=== PATIENT | female | born 1935 | race Two or more races ===

== ENCOUNTER 2020-04-27 19:04 | Inpatient (IN) | payer OTHER ==
[~2020-04-27] VITALS: Ht 160 cm; Wt 113.0 kg
--- NOTE | 2020-04-27 19:20 | NUR ---
PT BIBRA C/O SOB SINCE NOON TODAY. PT SATTING 89% ON RA. PT PLACED ON 7 L O2 SATTING 96%. PT DENIES ANY CHEST PAIN, FEVER, COUGH. PT AAOX4, CONNECTED TO THE PINNER PRINTED CIRCUIT BOARDS AND CONTINOUS POX.
--- NOTE | 2020-04-27 19:20 | NUR ---
DR NICKERSON AT BEDSIDE
[2020-04-27 19:27] LABS: BASOPHILS % (AUTO) 0.3 % (0.0-2.0); EOSINOPHILS % (AUTO) 0.2 % (0.0-6.0); HEMATOCRIT 45 % (33-45); HEMOGLOBIN 14.2 g/dL (11.5-14.8); LYMPHOCYTES # (AUTO) 0.9 /CMM (0.8-4.8); LYMPHOCYTES % (AUTO) 11.4 % (20.0-44.0); MEAN CORPUSCULAR HGB CONC 32 g/dl (31.0-36.0); MEAN CORPUSCULAR VOLUME 93 fL (82-100); MONOCYTES # (AUTO) 0.5 /CMM (0.1-1.30); MONOCYTES % (AUTO) 5.6 % (2.0-12.0); NEUTROPHILS # (AUTO) 6.9 /CMM (1.8-8.9); NEUTROPHILS % (AUTO) 82.5 % (43.0-81.0); PLATELET COUNT (AUTO) 182 /CMM (150-450); RED BLOOD CELL COUNT(AUTO) 4.85 MIL/uL (4.0-5.2); WHITE BLOOD COUNT (AUTO) 8.3 K/uL (4.3-11.0)
--- NOTE | 2020-04-27 19:27 | NUR ---
BLOOD COLLECTED AND SENT TO LAB
--- NOTE | 2020-04-27 19:31 | NUR ---
XRAY AR BEDSIDE
--- NOTE | 2020-04-27 19:32 | NUR ---
RT AT BEDSIDE
[2020-04-27 19:37] LABS: CALCIUM, SERUM 8.6 mg/dL (8.5-10.1); CARBON DIOXIDE 35 mmol/L (21-32); CHLORIDE 100 mmol/L (98-107); CREATININE 1.5 mg/dL (0.6-1.3); GLUCOSE 130 mg/dL (74-106); POTASSIUM 5.6 mmol/L (3.5-5.1); SODIUM SERUM 135 mmol/L (136-145); UREA NITROGEN, BLOOD 36 mg/dL (7-18)
[2020-04-27 19:40] LABS: ABG OXYGEN SATURATION 95.5 % (92.0-98.5); ABG PCO2 88.1 mmHg (35.0-45.0); ABG PH 7.182 (7.350-7.450); ABG PO2 97.9 mmHg (75.0-100.0); COHb 1.4 % (0.5-1.5); MetHb 0.4 % (0.0-1.5); O2Hb 93.8 % (94.0-97.0); SITE, ABG Right Radial; VENT MODE, BG RA
[2020-04-27 19:50] LABS: ALANINE AMINOTRANSFERASE 28 U/L (12-78); ALKALINE PHOSPHATASE 85 U/L (46-116); ASPARTATE AMINOTRANSFERASE 17 U/L (15-37); B-TYPE NATRIURETIC PEPTIDE 10179 PG/ML (0-125); BILIRUBIN,TOTAL 0.5 mg/dL (0.2-1.0); TOTAL PROTEIN, SERUM 7.1 g/dL (6.4-8.2)
[2020-04-27] MEDS ORDERED: PANT40TA4 PO (19:58)
[2020-04-27] MEDS ORDERED: LISI1TAB28 PO (19:58)
[2020-04-27] MEDS ORDERED: GABA-532 PO (19:58)
[2020-04-27] MEDS ORDERED: ATEN100T PO (19:58)
[2020-04-27] MEDS ORDERED: TERA2CAP4 PO (19:58)
[2020-04-27] MEDS ORDERED: DOCU100C36 PO (19:58)
[2020-04-27] MEDS ORDERED: AMLO5TAB9 PO (19:58)
[2020-04-27] MEDS ORDERED: ASPI-1169 PO (19:58)
[2020-04-27 20:01] LABS: D-DIMER 1.54 mg/L(FEU (0.17-0.50)
--- NOTE | 2020-04-27 20:08 | NUR ---
URINE COLLECTED AND SENT TO LAB
--- NOTE | 2020-04-27 20:11 | NUR ---
COVID AND RAPID INFLUENZA SWAB SENT TO LAB
[2020-04-27] MEDS ORDERED: FUROSEMIDE 40 MG/4 ML VIAL ONE (20:17)
[2020-04-27 20:24] LABS: APPEARANCE,URINE Slightly Cloudy (CLEAR); BILIRUBIN,URINE MODERATE (NEGATIVE); BLOOD, URINE Negative Ery/uL (NEGATIVE); COLOR,URINE Orange (YELLOW); KETONES,URINE Trace (NEGATIVE); LEUKOCYTE ESTERASE ,URINE Trace (NEGATIVE); NITRITE, URINE Negative (NEGATIVE); PROTEIN,URINE 100 mg/dl (NEGATIVE); UGLUCOSE Negative (NEGATIVE)
[2020-04-27] MEDS ORDERED: FUROSEMIDE 40 MG/4 ML VIAL IV ONE (20:30)
[2020-04-27 20:44] LABS: CREATINE KINASE, TOTAL 72 U/L (26-192); FERRITIN 14 ng/mL (8-388)
[2020-04-27 20:47] LABS: C-REACTIVE PROTEIN 1.4 mg/dL (0.0-0.9)
[2020-04-27] MEDS ORDERED: ENOXAPARIN SODIUM 120 MG/0.8 ML DISP.SYRIN SQ ONE (21:00)
[2020-04-27 21:01] LABS: RBC,URINE 0-2 /HPF (0-2)
[2020-04-27 21:02] LABS: BACTERIA,URINE Few /HPF (None Seen); MUCUS,URINE Few /LPF (None Seen); SQUAMOUS EPITHELIAL CELL,UR Moderate /HPF (None Seen); URINE AMORPHOUS URATE Many /HPF (None Seen)
[2020-04-27] MEDS ORDERED: ALBUTEROL FS 2.5 MG/0.5 ML VIAL.NEB NEB PRN (21:30)
[2020-04-27] MEDS ORDERED: ENOXAPARIN SODIUM 30 MG/0.3 ML DISP.SYRIN SQ SCH (21:30)
[2020-04-27] MEDS ORDERED: FUROSEMIDE 40 MG/4 ML VIAL IV SCH (21:30)
[2020-04-27] MEDS ORDERED: ACETAMINOPHEN 650 MG/SUPP.RECT RC PRN (21:30)
[2020-04-27] MEDS ORDERED: ONDANSETRON HCL/PF 4 MG/2 ML VIAL IVP PRN (21:30)
[2020-04-27] MEDS ORDERED: IPRATROPIUM NEB FS 0.5 MG/2.5 ML AMPUL.NEB NEB PRN (21:30)
--- NOTE | 2020-04-27 21:42 | NUR ---
RT AT BEDSIDE
[2020-04-27 21:50] LABS: ABG BASE EXCESS 2.6 mmol/L; ABG OXYGEN SATURATION 92.4 % (92.0-98.5); ABG PCO2 88.6 mmHg (35.0-45.0); ABG PH 7.199 (7.350-7.450); ABG PO2 77.5 mmHg (75.0-100.0); AaDO2 252.8 mmHg; COHb 1.5 % (0.5-1.5); MetHb 0.4 % (0.0-1.5); O2Hb 90.6 % (94.0-97.0); SITE, ABG Right Radial
--- NOTE | 2020-04-27 22:14 | NUR ---
REPORT GIVEN TO ELSI ORTEGA FOR HU
--- NOTE | 2020-04-27 22:15 | NUR ---
BIPAP SETTINGS: IPAP:18 EPAP: 8 RATE: 26 O2: 60%
[2020-04-27] MEDS ORDERED: LEVOFLOXACIN 500 MG /D5W 100ML 500 MG in PREMIX 1 EA IV ONE (22:45)
[2020-04-27] MEDS ORDERED: LEVOFLOXACIN 500 MG /D5W 100ML 100 ML IV ONE (22:55)
--- NOTE | 2020-04-27 23:15 | NUR ---
SEA KAYAKING GUIDE ADMISSION NOTES RECEIVED PT FROM ER VIA [facility] ON BIPAP SETTING ORDERED WITH SPO2 90% SAFELY TRANSFER PATIENT FROM [place] TO BED, BIPAP PLUGGED TO RED OUTLET, VITAL SIGNS CHECKED AND RECORDED HOOK TO BEDSIDE MONITOR WITH READING OF SINUS PEDRO ON 40'S-50'S, HEAD TO TOE ASSESSMENT DONE, CLEANING THE PT DONE, INVENTORY OF BELONGINGS DONE, PT HAVE LAC#20 AND RAC #20 PATENT AND FLUSHED, WITH ELLISON CATHETER WITH YELLOW URINE FLOWING VIA GRAVITY, PLACE ON DROPLET ISOLATION PRECAUTION R/O COVID, SAFETY MEASURE INITIATED BED ON LOWEST POSITION AND LOCKED SIDE RAILS UP X2 CALL LIGHT WITHIN REACH WILL CONT TO MONITOR THE PATIENT
--- NOTE | 2020-04-27 23:24 | NUR ---
PT TRANSFERRED TO ICU VIA ACLS PROTOCOL
[2020-04-27 23:30] VITALS: BP 160/77
[2020-04-27] MEDS: methylPREDNISolone SOD SUCC 125 MG/2ML VIAL IV SCH (23:50)
[2020-04-28] VITALS (31 sets, daily range): BP systolic 65–185; BP diastolic 33–110
[2020-04-28] MEDS ORDERED: IV NS 0.9% 250 ML IV PRN
--- NOTE | 2020-04-28 00:25 | NUR ---
INDUSTRIAL MAINTENANCE REPAIRER HELPER NOTES CALLED THE PHARMACY AND ASK BOUT THE NEW ORDER FOR THE HEPARIN DRIP OF THE PT JUST TO CLARIFY THE DOSES, TALK TO MISS GUTIERREZ AND SHE SAYS THAT NO BOLUS IS REQUIRED BECAUSE THE PT ALREADY RECEIVED LOVENOX AT THE ER THIS EVENING AND SHE SAYS THAT THE MAXIMUM DOSE CAN BE GIVEN IS 1200 UNIT/HR AND IT SHOULD BE STARTED 12 HOURS AFTER THE LOVENOX ADMINISTRATION NOTED AND WILL INFORM DOCTOR ABOUT THAT
--- NOTE | 2020-04-28 00:35 | NUR ---
DEPUTY FELONY CLERK NOTES INFORM DR. ABRAHAM NAVA ABOUT THE WORDS FROM THE PHARMACY ABOUT THE HEPARIN DRIP THAT WE WE CAN START IT AFTER 12 HOURS OF LOVENOX ADMINISTRATION AND HE AGREED TO IT NOTED AND CARRIED OUT
[2020-04-28 00:58] LABS: ABG BASE EXCESS 5.3 mmol/L; ABG OXYGEN SATURATION 95.1 % (92.0-98.5); ABG PCO2 69.3 mmHg (35.0-45.0); ABG PH 7.309 (7.350-7.450); ABG PO2 82.2 mmHg (75.0-100.0); AaDO2 269.4 mmHg; COHb 1.6 % (0.5-1.5); MetHb 0.1 % (0.0-1.5); O2Hb 93.5 % (94.0-97.0); SITE, ABG Right Radial
[2020-04-28 05:58] LABS: BASOPHILS % (AUTO) 0.2 % (0.0-2.0); EOSINOPHILS % (AUTO) 0.2 % (0.0-6.0); HEMATOCRIT 46 % (33-45); HEMOGLOBIN 14.5 g/dL (11.5-14.8); LYMPHOCYTES # (AUTO) 0.8 /CMM (0.8-4.8); LYMPHOCYTES % (AUTO) 10.8 % (20.0-44.0); MEAN CORPUSCULAR HGB CONC 32 g/dl (31.0-36.0); MEAN CORPUSCULAR VOLUME 92 fL (82-100); MONOCYTES # (AUTO) 0.3 /CMM (0.1-1.30); MONOCYTES % (AUTO) 3.8 % (2.0-12.0); NEUTROPHILS # (AUTO) 6.6 /CMM (1.8-8.9); PLATELET COUNT (AUTO) 167 /CMM (150-450); RED BLOOD CELL COUNT(AUTO) 5.02 MIL/uL (4.0-5.2); WHITE BLOOD COUNT (AUTO) 7.7 K/uL (4.3-11.0)
[2020-04-28 06:58] LABS: CALCIUM, SERUM 8.6 mg/dL (8.5-10.1); CARBON DIOXIDE 38 mmol/L (21-32); CHLORIDE 97 mmol/L (98-107); CREATININE 1.6 mg/dL (0.6-1.3); GLUCOSE 114 mg/dL (74-106); POTASSIUM 5.6 mmol/L (3.5-5.1); SODIUM SERUM 133 mmol/L (136-145); UREA NITROGEN, BLOOD 37 mg/dL (7-18)
[2020-04-28 06:59] LABS: B-TYPE NATRIURETIC PEPTIDE 9233 PG/ML (0-125); CREATINE KINASE, TOTAL 86 U/L (26-192); FERRITIN 13 ng/mL (8-388); MAGNESIUM 2.3 mg/dL (1.8-2.4); PHOSPHORUS 5.5 mg/dL (2.5-4.9); TRIGLYCERIDES 72 mg/dL (30-150)
[2020-04-28 07:00] LABS: CHOLESTEROL 135 mg/dL (<200); HDL CHOLESTEROL 40 mg/dL (40-60); LDL 88 mg/dL (0-99); THYROID STIMULATING HORMONE 1.427 uIU/mL (0.358-3.74)
--- NOTE | 2020-04-28 07:30 | NUR ---
RN OPENING NOTES RECEIVED PATIENT FROM PM NURSE, RESTING IN BED. PATIENT RECEIVED ON BIPAP WITH SETTINGS ORDERED. TOLERATING WELL, O2 SATURATION AT 93%. PATIENT IS ON ISOLATION FOR RULE OUT OF COVID. PATIENT IS AWAKE AT THE MOMENT, A/O X4. ON TELE MONITOR WITH SB NOTED. MD IS AWARE. TROPONIN LEVEL OF 4.[address] RIOS, NO NEW ORDERS. PATIENT HAS A ELLISON IN PLACE, INTACT, PATENT, AND DRAINING TREVER URINE. PATIENT IS NPO AT THE MOMENT DUE TO CONDITION. OK TO GIVE MEDS PER DR SHARPE IF PATIENT IS AWAKE AND ALERT AND IS ABLE TO SWALLOW. LAC#20 AND RAC#20 INTACT, PATENT, AND FLUSHED WELL. SAFETY MAINTAINED, CALL LIGHT WITHIN REACH, WILL CONTINUE TO MONITOR CLOSELY.
[2020-04-28 07:46] LABS: D-DIMER 1.61 mg/L(FEU (0.17-0.50)
--- NOTE | 2020-04-28 08:11 | NUR ---
pt. is awake and follow commands placed into venti mask @ 28% fio2. bipap on stand by @ bedside. Addendum: 04/28/20 at 12 by HARINDER FORBES RT Amended: Links added.
[2020-04-28] MEDS: ASPIRIN 81 MG TAB.CHEW PO SCH (08:39)
[2020-04-28] MEDS: GABAPENTIN 100 MG CAPSULE PO SCH ×3 (08:40→20:15)
[2020-04-28] MEDS ORDERED: PANTOPRAZOLE 40 MG VIAL IV SCH (09:00)
--- NOTE | 2020-04-28 09:15 | NUR ---
RN NOTE CT OF THE CHEST IS ON HOLD FOR NOW PER DR SCOTT ORDER. WAITING ON ABG RESULTS PRIOR TO CT SCAN.
--- NOTE | 2020-04-28 09:42 | NUR ---
PATIENT SUPPOSED TO COME DOWN TO CT ROOM FOR CT CHEST W/O CONTRAST BUT WAS ON TILL FURTHER NOTICE PER DR. SCOTT.
--- NOTE | 2020-04-28 09:44 | NUR ---
PATIENT IS ON HOLD FOR THE CT SCAN UNTIL FURTHER NOTICE PER DR. SCOTT.
--- NOTE | 2020-04-28 09:47 | NUR ---
RN NOTE SPOKE TO PHARMACY. WAITING ON STARTING HEPARIN DRIP DUE TO NO PTT FROM THE AM. ASKED LAB TO ADD PTT TO MORNING BLOOD DRAW, WILL CALL ME BACK TO LET ME KNOW IF IT IS POSSIBLE. SAFETY MAINTAINED, CALL LIGHT WITHIN REACH, WILL CONTINUE TO MONITOR CLOSELY.
--- NOTE | 2020-04-28 09:57 | NUR ---
RN NOTE SPOKE TO FRANCHESKA IN PHARMACY, INFORMED HER THAT LAB IS UNABLE TO ADD PTT TO MORNING DRAW. PER PHARMACY, STAT APTT AND START HEPARIN DRIP SOON THEY DRAW THE BLOOD. NO NEED TO WAIT FOR RESULTS TO START THE DRIP, OK TO START RIGHT AFTER BLOOD DRAW. SAFETY MAINTAINED, CALL LIGHT WITHIN REACH, WILL CONTINUE TO MONITOR CLOSELY.
[2020-04-28] MEDS: HEPARIN INFUSION/D5W 500 ML IV PRN (10:33)
[2020-04-28] MEDS: IPRATROPIUM/ALBUTEROL INHALER IH SCH ×3 (12:57→23:31)
[2020-04-28] MEDS: methylPREDNISolone SOD SUCC 125 MG/2ML VIAL IV SCH ×3 (12:58→23:04)
--- NOTE | 2020-04-28 13:30 | NUR ---
RN NOTE URINE SAMPLE COLLECTED AND SENT TO LAB
[2020-04-28 13:58] LABS: CALCIUM, SERUM 8.6 mg/dL (8.5-10.1); CREATININE 1.3 mg/dL (0.6-1.3); POTASSIUM 4.4 mmol/L (3.5-5.1)
--- NOTE | 2020-04-28 18:47 | NUR ---
RN NOTE APTT RESULT CAME BACK AT 61.1, NO CHANGES TO DRIP RATE PER ORDERED PROTOCOL. PATIENT TOLERATING WELL, NO SIGNS AND SYMPTOMS OF BLEEDING NOTED. SAFETY MAINTAINED, CALL LIGHT WITHIN REACH, WILL CONTINUE TO MONITOR CLOSELY.
--- NOTE | 2020-04-28 19:10 | NUR ---
JEWELRY INSPECTOR OPENING NOTES: Received pt awake in bed, A&Ox4. On isolation for R/O Covid. On venturi mask at 6L/min tolerating well. No SOB or respiratory distress noted. SB on tele monitor. IV site on LAC #20 and RAC #20 patent and flushing w/ Heparin drip infusing at 1200U/hr. Kerr cath in place patent and draining urine. Safety measures in place. Will continue to monitor.
--- NOTE | 2020-04-28 19:14 | NUR ---
RN CLOSING NOTES NO ACUTE CHANGES TO PATIENT CONDITION DURING MY SHIFT. ALL PATIENT NEEDS MET, CALL LIGHT WITHIN REACH. PATIENT REMAINED A/OX4, ON VENTI MASK AT 28%, SATURATING WELL AT 90%. REQUIRES FREQUENT REORIENTATION TO KEEP VENTI MASK ON. RUNNING HEPARIN DRIP ORDERED, NO CHANGES PER PTT LEVEL, NEXT PTT ORDERED FOR MORNING LAB BLOOD DRAW. SAFETY MAINTAINED, CALL LIGHT WITHIN REACH, WILL CONTINUE TO MONITOR CLOSELY.
[2020-04-28] MEDS: LEVOFLOXACIN 250 MG /D5W 50 ML 50 ML IV SCH (20:14)
--- NOTE | 2020-04-28 20:59 | NUR ---
CAMERA MECHANIC NOTE: Pt stated she would like to have her bed bath around 0500. She stated "but if I'm sleeping, please don't wake me up because then I can't go back to sleep." Pt's wishes noted. Will continue to monitor.
[2020-04-28 21:18] LABS: APPEARANCE,URINE SL CLOUDY (CLEAR); BILIRUBIN,URINE NEGATIVE (NEGATIVE); BLOOD, URINE LARGE Ery/uL (NEGATIVE); COLOR,URINE YELLOW (YELLOW); KETONES,URINE NEGATIVE (NEGATIVE); LEUKOCYTE ESTERASE ,URINE NEGATIVE (NEGATIVE); NITRITE, URINE NEGATIVE (NEGATIVE); PH,URINE 5.5 (5.0-8.0); PROTEIN,URINE TRACE mg/dl (NEGATIVE); UGLUCOSE NEGATIVE (NEGATIVE); UROBILINOGEN,URINE 0.2 EU/dL (0.2)
[2020-04-28 21:34] LABS: CREATININE, URINE 27.4 MG/DL (30.0-125.0)
[2020-04-28 21:42] LABS: URINE TOTAL PROTEIN 30.3 mg/dL (0-11.9)
[2020-04-28 22:17] LABS: BACTERIA,URINE Few /HPF (None Seen); RBC,URINE TOO NUMEROUS TO COUN /HPF (0-2); SQUAMOUS EPITHELIAL CELL,UR Few /HPF (None Seen)
[2020-04-28 22:24] LABS: EOSINOPHIL,URINE None Seen
[2020-04-29] VITALS (22 sets, daily range): BP systolic 78–157; BP diastolic 40–108
--- NOTE | 2020-04-29 00:46 | NUR ---
X RAY TECHNICIAN NOTE: Pt has been removing mask throughout shift. Explained to pt the importance of wearing mask at all times to maintain O2 sat WNL. Pt tated "I take it off to blow my nose." Explained to pt that that is ok, but to put mask on right after she is done. Verbalized understanding. Will continue to monitor.
[2020-04-29 04:39] LABS: BASOPHILS % (AUTO) 0.1 % (0.0-2.0); HEMATOCRIT 42 % (33-45); HEMOGLOBIN 13.3 g/dL (11.5-14.8); LYMPHOCYTES # (AUTO) 0.5 /CMM (0.8-4.8); LYMPHOCYTES % (AUTO) 4.9 % (20.0-44.0); MEAN CORPUSCULAR HGB CONC 31 g/dl (31.0-36.0); MEAN CORPUSCULAR VOLUME 93 fL (82-100); MONOCYTES # (AUTO) 0.2 /CMM (0.1-1.30); MONOCYTES % (AUTO) 2.6 % (2.0-12.0); NEUTROPHILS # (AUTO) 8.7 /CMM (1.8-8.9); NEUTROPHILS % (AUTO) 92.4 % (43.0-81.0); PLATELET COUNT (AUTO) 189 /CMM (150-450); RED BLOOD CELL COUNT(AUTO) 4.57 MIL/uL (4.0-5.2); WHITE BLOOD COUNT (AUTO) 9.4 K/uL (4.3-11.0)
[2020-04-29 04:54] LABS: ALANINE AMINOTRANSFERASE 24 U/L (12-78); ALBUMIN 2.7 g/dL (3.4-5.0); ALKALINE PHOSPHATASE 75 U/L (46-116); ASPARTATE AMINOTRANSFERASE 15 U/L (15-37); BILIRUBIN,TOTAL 0.4 mg/dL (0.2-1.0); CALCIUM, SERUM 8.5 mg/dL (8.5-10.1); CARBON DIOXIDE 35 mmol/L (21-32); CHLORIDE 99 mmol/L (98-107); CREATININE 1.3 mg/dL (0.6-1.3); GLUCOSE 174 mg/dL (74-106); MAGNESIUM 2.1 mg/dL (1.8-2.4); PHOSPHORUS 4.4 mg/dL (2.5-4.9); POTASSIUM 4.5 mmol/L (3.5-5.1); SODIUM SERUM 136 mmol/L (136-145); TOTAL PROTEIN, SERUM 6.4 g/dL (6.4-8.2); UREA NITROGEN, BLOOD 44 mg/dL (7-18)
[2020-04-29] MEDS: methylPREDNISolone SOD SUCC 125 MG/2ML VIAL IV SCH ×4 (05:04→23:56)
[2020-04-29] MEDS: IPRATROPIUM/ALBUTEROL INHALER IH SCH (05:04)
--- NOTE | 2020-04-29 06:06 | NUR ---
EMAIL ENGINEER NOTE: 0523: Received call from Kandy from lab. Pt's troponin is 2.623. 0530: Kandy called again. Pt's ptt is 100.2. Held heparin drip per protocol. Dr. Laurent lomeli. NNO. Will continue to monitor.
--- NOTE | 2020-04-29 06:15 | NUR ---
CUP TRIMMING MACHINE OPERATOR NOTE: Checked in on pt around 0500 and 0545. Pt asleep. Did not wake pt up for bed bath per wishes.
[2020-04-29] MEDS: HEPARIN INFUSION/D5W 500 ML IV PRN (06:30)
--- NOTE | 2020-04-29 06:50 | NUR ---
PHOTOCOPY OPERATOR CLOSING NOTES: Pt remains on mask. No SOB or respiratory distress noted throughout shift. No acute changes noted during shift. Pt needs constant reminders to keep mask on. Heparin drip infusing at 900 units/hr. No signs of bleeding noted. Kerr cath in place patent and draining urine. Safety measures in place. Will endorse to AM nurse for HU.
--- NOTE | 2020-04-29 07:27 | NUR ---
WOUND CARE CONSULT: REVIEWED CHART, NURSING DOCUMENTATION AND PHOTOS WHICH SHOW LEFT KNEE SCAR AND THIGH SCARRING, PRESENT ON ADMISSION. RECOMMENDATIONS MADE FOR SKIN PROTECTION. DISCUSSED WITH NURSING STAFF. [facility]. WILL SEE PRNFrank PARKINSON IN AGREEMENT WITH PLAN OF CARE. CURRENT ANNEMARIE SCORE IS 13.
[2020-04-29] MEDS ORDERED: Z GUARD REMEDY 2 OZ OINT TP PRN (07:30)
[2020-04-29] MEDS: PANTOPRAZOLE 40 MG TABLET.DR PO SCH (07:47)
[2020-04-29 08:26] LABS: ABG BASE EXCESS 6.9 mmol/L; ABG OXYGEN SATURATION 90.6 % (92.0-98.5); ABG PCO2 62.8 mmHg (35.0-45.0); ABG PO2 60.3 mmHg (75.0-100.0); AaDO2 65.2 mmHg; COHb 1.2 % (0.5-1.5); MetHb 0.1 % (0.0-1.5); O2Hb 89.4 % (94.0-97.0); SITE, ABG Right Brachial; VENT MODE, BG 28% vent imask
[2020-04-29] MEDS: DOCUSATE SODIUM 100 MG CAPSULE PO SCH (08:55)
[2020-04-29] MEDS: ENOXAPARIN SODIUM 30 MG/0.3 ML DISP.SYRIN SQ SCH (08:55)
[2020-04-29] MEDS: AMLODIPINE BESYLATE 5 MG TABLET PO SCH (08:56)
[2020-04-29] MEDS: ASPIRIN 81 MG TAB.CHEW PO SCH (09:07)
[2020-04-29] MEDS: GABAPENTIN 300 MG CAPSULE PO SCH ×3 (09:08→21:38)
[2020-04-29] MEDS: Z GUARD REMEDY 2 OZ OINT TP SCH (09:38)
[2020-04-29 10:17] LABS: ABG BASE EXCESS 7.6 mmol/L; ABG OXYGEN SATURATION 90.8 % (92.0-98.5); ABG PCO2 71.2 mmHg (35.0-45.0); ABG PH 7.326 (7.350-7.450); ABG PO2 64.4 mmHg (75.0-100.0); AaDO2 51.2 mmHg; COHb 1.8 % (0.5-1.5); MetHb 0.3 % (0.0-1.5); O2Hb 88.9 % (94.0-97.0); SITE, ABG Right Radial; VENT MODE, BG venti 28%
[2020-04-29 14:07] LABS: CREATINE KINASE, TOTAL 32 U/L (26-192)
[2020-04-29 15:23] LABS: ABG BASE EXCESS 7.9 mmol/L; ABG OXYGEN SATURATION 90.4 % (92.0-98.5); ABG PCO2 73.7 mmHg (35.0-45.0); ABG PH 7.318 (7.350-7.450); ABG PO2 62.8 mmHg (75.0-100.0); AaDO2 20.6 mmHg; COHb 1.4 % (0.5-1.5); MetHb 0.1 % (0.0-1.5); SITE, ABG Right Radial; VENT MODE, BG N/C .5 LPM
[2020-04-29] MEDS: ALBUTEROL HALF STRENGTH 1.25 MG/3 ML VIAL.NEB NEB SCH ×3 (16:22→23:38)
[2020-04-29] MEDS: IPRATROPIUM NEB FS 0.5 MG/2.5 ML AMPUL.NEB NEB SCH ×3 (16:22→23:38)
--- NOTE | 2020-04-29 16:59 | NUR ---
Pt was transferred to [facility] [place] [facility] and gave report to Meg CALZADA. Pt is awake and alert. Confused with situation but reaoruints easily. Tolerating 1 LPM/NC with O2 sat 90-96%. Pt finished about 50-75% of her meals with good urine out of 575 cc x 10 hrs with blood tinged urine. No BM all day today. Pt is stable and denies any pain or discomfort.
--- NOTE | 2020-04-29 17:00 | NUR ---
MS RN NOTE RECEIVED PATIENT FROM IN STABLE CONDITION. PATIENT SITUATED IN THE ROOM. CALL LIGHT WITHIN REACH. CALL LIGHT WITHIN REACH. WILL CONTINUE.
--- NOTE | 2020-04-29 18:47 | NUR ---
COURT ORDERLY NOTES PATIENT IN BED RESTING NO SOB OR ACUTE DISTRESS NOTED. ALL DUE MEDICATIONS ADMINISTERED. ALL NEEDS MET. PATIENT ON TELE SR-SB. WILL ENDORSE CARE TO PM SHIFT.
--- NOTE | 2020-04-29 19:10 | NUR ---
QUALITY OFFICER: RECEIVED PATIENT Patient in bed awake, on 2L NC tolerating well, denies SOB. Sinus Ángel with PVC. Kerr cath to gravity. Fall precaution maintained.
[2020-04-29] MEDS: LEVOFLOXACIN 250 MG /D5W 50 ML 50 ML IV SCH (21:03)
--- NOTE | 2020-04-29 23:57 | NUR ---
RT NOTE TRIED TO PLACE PT ON NOC BIPAP. PT REFUSED SAID SHE COULDNT BREATH. EXPLAINED THAT THE MD ORDERED. STILL REFUSED. PT ALERT AND UNDERSTOOD THE NEED FOR BIPAP. RN MALKA NOTIFIED. NO SOB NOTED. NO DISTERSS NOTED. TOOK BREATHING TX. PT NOTIFIED IF SHE FEELS SOB, WILL BE PLACED ON BIPAP. SPO2 97-99 ON 2LPM NC. WILL CONTINUE TO MONITOR T/O SHIFT.
[2020-04-30] VITALS (8 sets, daily range): BP systolic 129–179; BP diastolic 49–77
[2020-04-30] MEDS: ALBUTEROL HALF STRENGTH 1.25 MG/3 ML VIAL.NEB NEB SCH ×6 (03:12→22:51)
[2020-04-30] MEDS: IPRATROPIUM NEB FS 0.5 MG/2.5 ML AMPUL.NEB NEB SCH ×6 (03:12→22:51)
[2020-04-30] MEDS: methylPREDNISolone SOD SUCC 125 MG/2ML VIAL IV SCH ×2 (06:31→12:19)
--- NOTE | 2020-04-30 06:35 | NUR ---
WAITER/WAITRESS TAKE OUT: END OF SHIFT REPORT Patient in bed, oxygen 2L NC saturation 98%, refused BIPAP last night, education provided, denies SOB. Sinus Ángel in the Tele monitor. IV antibiotic as scheduled, afebrile overnight. Continue current care and hospitalization per MD. Fall precaution maintained.
--- NOTE | 2020-04-30 07:38 | NUR ---
PRODUCT MANAGEMENT SPECIALIST OPENING NOTE PATIENT IN BED RESTING COMFORTABLY. PATIENT IN NO ACUTE DISTRESS. NO SOB NOTED. PATIENT BREATHING IS EVEN AND UNLABORED. PATIENT ON NC AT 2L SATURATING >95% SPO2. PATIENT ON CARDIAC MONITORING READING SINUS BRADYCARDIA HR 52. PATIENT BED ALARM IS ON. PATIENT SAFETY PRECAUTIONS IN PLACE. PATIENT BED IS LOCKED AND IN LOWEST POSITION. CALL LIGHT WITHIN REACH. WILL CONTINUE TO MONITOR.
[2020-04-30] MEDS: Z GUARD REMEDY 2 OZ OINT TP SCH (08:32)
[2020-04-30] MEDS: GABAPENTIN 300 MG CAPSULE PO SCH ×3 (08:33→21:15)
[2020-04-30] MEDS: AMLODIPINE BESYLATE 5 MG TABLET PO SCH (08:33)
[2020-04-30] MEDS: PANTOPRAZOLE 40 MG TABLET.DR PO SCH (08:33)
[2020-04-30] MEDS: DOCUSATE SODIUM 100 MG CAPSULE PO SCH (08:33)
[2020-04-30] MEDS: ASPIRIN 81 MG TAB.CHEW PO SCH (08:33)
[2020-04-30] MEDS: ENOXAPARIN SODIUM 30 MG/0.3 ML DISP.SYRIN SQ SCH (08:34)
[2020-04-30] MEDS: VALSARTAN 80 MG TABLET PO SCH (09:07)
[2020-04-30 13:14] LABS: PTH, INTACT 152 pg/mL (15-65)
--- NOTE | 2020-04-30 14:48 | NUR ---
MS RN NOTE SPOKE WITH NADEGE POPE ABOUT PATIENT REQUEST TO CHANGE TYLENOL SUPPOSITORY 650MG TO PO TYLENOL 650 MG Q6H DUE TO DISCOMFORT. PER NADEGE POPE ORDER TO CHANGE TYLENOL ORDER TO PO 650MG Q6H.
--- NOTE | 2020-04-30 16:02 | NUR ---
MS RN NOTE INFORMED NADEGE WEAPONS OFFICER [employer] THAT PATIENTS SYSTOLIC BP WAS ELEVATED IN THE 170'S. PER NADEGE ORDER FOR HYDRALAZINE 10 MG PO ONE TIME DOSE.
[2020-04-30] MEDS ORDERED: hydrALAZINE HCL 10 MG TABLET PO ONE (16:30)
[2020-04-30] MEDS: methylPREDNISolone SOD SUCC 40 MG/ML VIAL IV SCH (17:07)
--- NOTE | 2020-04-30 18:49 | NUR ---
MS RN CLOSING NOTE PATIENT IN BED RESTING COMFORTABLY. PATIENT IN NO ACUTE DISTRESS. NO SOB NOTED. PATIENT BREATHING IS EVEN AND UNLABORED. PATIENT ON NC AT 2L SATURATING >95% SPO2. PATIENT KEPT CLEAN, DRY AND COMFORTABLE THROUGHOUT SHIFT. PATIENT BED ALARM IS ON. PATIENT SAFETY PRECAUTIONS IN PLACE. PATIENT TURNED AND REPOSITIONED Q2H. PATIENT BED IS LOCKED AND IN LOWEST POSITION. CALL LIGHT WITHIN REACH. WILL ENDORSE CARE TO PM SHIFT FOR HU.
--- NOTE | 2020-04-30 19:11 | NUR ---
MS RN: RECEIVED PATIENT Patient in bed awake, appears comfortable, supplemental oxygen 2L NC, denies SOB. Kerr cath to gravity. Fall precaution; skin precaution maintained. Off antibiotic now per ELSI Mac/jarrett primary nurse.
--- NOTE | 2020-04-30 21:00 | NUR ---
RT pt refused bipap. pt states mask is too tight and cannot breathe. informed pt that mask is suppose to be tight to form a seal. pt adjusts mask downward causing large leak. asked pt if pt has been wearing the mask for the past couple of nights. pt says no because the mask is too tight. informed joslyn henley. will continue to monitor pt saturation throughout the night.
--- NOTE | 2020-04-30 22:58 | NUR ---
RT attempted bipap second time. pt refused again, saying it is too hard to breathe. rn aware. will continue to monitor
[2020-05-01] MEDS: ALBUTEROL HALF STRENGTH 1.25 MG/3 ML VIAL.NEB NEB SCH ×6 (04:03→22:37)
[2020-05-01] MEDS: IPRATROPIUM NEB FS 0.5 MG/2.5 ML AMPUL.NEB NEB SCH ×6 (04:03→22:37)
[2020-05-01 06:43] LABS: HEMATOCRIT 46 % (33-45); HEMOGLOBIN 14.1 g/dL (11.5-14.8); LYMPHOCYTES # (AUTO) 0.9 /CMM (0.8-4.8); MEAN CORPUSCULAR HGB CONC 31 g/dl (31.0-36.0); MEAN CORPUSCULAR VOLUME 92 fL (82-100); MONOCYTES # (AUTO) 0.8 /CMM (0.1-1.30); MONOCYTES % (AUTO) 7.2 % (2.0-12.0); NEUTROPHILS # (AUTO) 9.8 /CMM (1.8-8.9); NEUTROPHILS % (AUTO) 84.8 % (43.0-81.0); PLATELET COUNT (AUTO) 152 /CMM (150-450); RED BLOOD CELL COUNT(AUTO) 4.97 MIL/uL (4.0-5.2); WHITE BLOOD COUNT (AUTO) 11.6 K/uL (4.3-11.0)
[2020-05-01 06:48] LABS: ALBUMIN 2.8 g/dL (3.4-5.0); BILIRUBIN,TOTAL 0.5 mg/dL (0.2-1.0); CALCIUM, SERUM 8.7 mg/dL (8.5-10.1); POTASSIUM 4.7 mmol/L (3.5-5.1); TOTAL PROTEIN, SERUM 6.7 g/dL (6.4-8.2)
--- NOTE | 2020-05-01 07:13 | NUR ---
MS RN: END OF SHIFT REPORT Patient in bed, remains on 2L NC, non compliant with BIPAP use, declined education. Denies SOB, afebrile overnight. Fall; skin precaution maintained.
--- NOTE | 2020-05-01 07:41 | NUR ---
MS RN OPENING NOTE PATIENT IN BED RESTING COMFORTABLY. PATIENT IN NO ACUTE DISTRESS. NO SOB NOTED. PATIENT BREATHING IS EVEN AND UNLABORED. PATIENT ON NC AT 2L. PATIENT BED ALARM IS ON. PATIENT SAFETY PRECAUTIONS IN PLACE. PATIENT BED IS LOCKED AND IN LOWEST POSITION. CALL LIGHT WITHIN REACH. WILL CONTINUE TO MONITOR.
[2020-05-01 08:00] VITALS: BP 134/56
[2020-05-01] MEDS: DOCUSATE SODIUM 100 MG CAPSULE PO SCH (09:04)
[2020-05-01] MEDS: PANTOPRAZOLE 40 MG TABLET.DR PO SCH (09:04)
[2020-05-01] MEDS: VALSARTAN 80 MG TABLET PO SCH (09:04)
[2020-05-01] MEDS: ENOXAPARIN SODIUM 30 MG/0.3 ML DISP.SYRIN SQ SCH (09:04)
[2020-05-01] MEDS: methylPREDNISolone SOD SUCC 40 MG/ML VIAL IV SCH ×2 (09:05→17:02)
[2020-05-01] MEDS: ASPIRIN 81 MG TAB.CHEW PO SCH (09:05)
[2020-05-01] MEDS: GABAPENTIN 300 MG CAPSULE PO SCH ×3 (09:05→20:18)
[2020-05-01] MEDS: AMLODIPINE BESYLATE 5 MG TABLET PO SCH (09:05)
[2020-05-01] MEDS: Z GUARD REMEDY 2 OZ OINT TP SCH (09:06)
[2020-05-01] MEDS ORDERED: FUROSEMIDE 40 MG/4 ML VIAL IV ONE (10:00)
[2020-05-01] MEDS: ISOSORBIDE DINITRATE (20MG) 20 MG TABLET PO SCH ×2 (10:18→17:02)
--- NOTE | 2020-05-01 12:00 | NUR ---
MS RN NOTE NOTIFIED AND MADE AWARE TO NADEGE POPE THAT PATIENT HAS BEEN NONCOMPLIANT WITH BIPAP AT NIGHT. NO NEW ORDERS AT THIS TIME. WILL CONTINUE TO MONITOR.
[2020-05-01] MEDS: ACETAMINOPHEN 325 MG TABLET PO PRN (15:33)
--- NOTE | 2020-05-01 15:34 | NUR ---
MS RN NOTE PATIENT STATES 4/10 GENERALIZED BODY PAIN. TYLENOL PRN GIVEN ORDERED.
[2020-05-01 16:00] VITALS: BP 115/53
--- NOTE | 2020-05-01 18:49 | NUR ---
MS RN CLOSING NOTE PATIENT IN BED RESTING COMFORTABLY. PATIENT IN NO ACUTE DISTRESS. NO SOB NOTED. PATIENT BREATHING IS EVEN AND UNLABORED. PATIENT CURRENTLY ON 4L NC SATURATING >92% SPO2. PATIENT KEPT CLEAN, DRY AND COMFORTABLE THROUGHOUT SHIFT. PATIENT NEEDS AND CONCERNS ADDRESSED. ELLISON CATHETER DRAINING TO GRAVITY DRAINING CLEAR YELLOW URINE. PATIENT BED ALARM IS ON. SAFETY PRECAUTIONS IN PLACE. PATIENT BED IS LOCKED AND IN LOWEST POSITION. CALL LIGHT WITHIN REACH. WILL ENDORSE CARE TO PM SHIFT FOR HU.
[2020-05-01 20:00] VITALS: BP 141/62
--- NOTE | 2020-05-01 20:00 | NUR ---
MS RN OPENING NOTE: Patient in bed resting comfortably. Patient is AOx3. Patient shows no signs of distress. On 2L Nasal canula. O2 sat greater than 94 %. No SOB. Breathing is unlabored and equal. IV noted on right forearm; 22 gauge. IV is patent; no redness or infiltration. Safety precaution is in place; bed in lowest position, bed is locked, side rails x2 are up, alarm is on, and call light is within reach. Will continue plan of care.
[2020-05-02] MEDS: IPRATROPIUM NEB FS 0.5 MG/2.5 ML AMPUL.NEB NEB SCH ×5 (02:50→20:02)
[2020-05-02] MEDS: ALBUTEROL HALF STRENGTH 1.25 MG/3 ML VIAL.NEB NEB SCH ×5 (02:50→20:02)
--- NOTE | 2020-05-02 06:41 | NUR ---
MS RN CLOSING NOTE: Patient in bed sleeping comfortably. Patient shows no signs of pain or discomfort at this time. Patient shows no signs of distress. On 4L Nasal canula. O2 sat greater than 94 %. No SOB. Breathing is unlabored and equal. Safety precaution is in place; bed in lowest position, bed is locked, side rails x2 are up, alarm is on, and call light is within reach. Will endorse to next shift.
--- NOTE | 2020-05-02 07:28 | NUR ---
MS/RN Opening note Patient received from machinist 2nd shift. A/O X3, vital signs stable, no shortness of breath at this time. No pain or discomfort. Heplock to right forearm flushing well with normal saline, no signs of infiltration. Call light within reach, brakes locked, bed in low setting. Will continue to monitor and ensure safety.
[2020-05-02 07:43] LABS: CALCIUM, SERUM 8.3 mg/dL (8.5-10.1); POTASSIUM 5.4 mmol/L (3.5-5.1)
[2020-05-02 08:00] VITALS: BP 139/65
[2020-05-02] MEDS: methylPREDNISolone SOD SUCC 40 MG/ML VIAL IV SCH ×2 (08:51→16:27)
[2020-05-02] MEDS: ASPIRIN 81 MG TAB.CHEW PO SCH (08:52)
[2020-05-02] MEDS: PANTOPRAZOLE 40 MG TABLET.DR PO SCH (08:52)
[2020-05-02] MEDS: GABAPENTIN 300 MG CAPSULE PO SCH ×3 (08:52→20:49)
[2020-05-02] MEDS: DOCUSATE SODIUM 100 MG CAPSULE PO SCH (08:52)
[2020-05-02] MEDS: VALSARTAN 80 MG TABLET PO SCH (08:53)
[2020-05-02] MEDS: AMLODIPINE BESYLATE 5 MG TABLET PO SCH (08:53)
[2020-05-02] MEDS: ISOSORBIDE DINITRATE (20MG) 20 MG TABLET PO SCH ×2 (08:53→16:27)
[2020-05-02] MEDS: ENOXAPARIN SODIUM 30 MG/0.3 ML DISP.SYRIN SQ SCH (09:02)
[2020-05-02] MEDS: Z GUARD REMEDY 2 OZ OINT TP SCH (09:04)
--- NOTE | 2020-05-02 09:20 | NUR ---
MS/RN Medications Morning medications administered as ordered. Patient complaining of sore throat, will obtain order for lozenges.
--- NOTE | 2020-05-02 09:59 | NUR ---
MS/RN S/B Chelsey Morris CAN SEALER Seen by CAN SEALER - made aware of elevated potassium level, 40mg IV lasix ordered BID. Physical therapy evaluation.
[2020-05-02] MEDS ORDERED: MENTHOL/CETYLPYRD (CEPACOL) 1 LOZ LOZENGE PO PRN (10:00)
[2020-05-02] MEDS: hydrALAZINE HCL 50 MG TABLET PO SCH ×3 (10:21→16:28)
[2020-05-02] MEDS: FUROSEMIDE 40 MG/4 ML VIAL IV SCH ×2 (10:21→16:27)
--- NOTE | 2020-05-02 11:00 | NUR ---
MS/RN S/B Dr Suazo Seen by Dr Suazo - continue with low flow oxygen, bronchodilators, ABG ordered.
--- NOTE | 2020-05-02 11:30 | NUR ---
MS/RN Labs Morning labs: -K+ 5.4 -CO2 41 -BUN 42 -Creat 1.0 -BNP 4447 -PCO2 73.7 -PO2 62.8
[2020-05-02] MEDS: ACETAMINOPHEN 325 MG TABLET PO PRN (13:32)
--- NOTE | 2020-05-02 13:34 | NUR ---
MS/RN Headache Complaining of headache and sore throat, tylenol 650mg given with cepacol lozenge.
[2020-05-02 16:00] VITALS: BP 140/65
[2020-05-02 16:07] LABS: *SPE A/G RATIO 0.9 (0.7-1.7); *SPE ALBUMIN 2.8 g/dL (2.9-4.4); *SPE ALPHA-1-GLOBULIN 0.2 g/dL (0.0-0.4); *SPE ALPHA-2-GLOBULIN 0.7 g/dL (0.4-1.0); *SPE BETA GLOBULIN 1.2 g/dL (0.7-1.3); *SPE GLOBULIN, TOTAL 3.2 g/dL (2.2-3.9); *SPE M-SPIKE Not Observed g/dL (Not Observed); *SPEGAMMA GLOBULIN 1.1 g/dL (0.4-1.8)
--- NOTE | 2020-05-02 18:27 | NUR ---
MS/RN End note Patient remains in stable condition, per skilled nursing case manager, discharge planning to SNF. Working with insurance to find facility that is contracted. No complaints of pain or discomfort, all needs attended. Time allowed for all fears and concerns to be addressed. Will endorse to trainmaster.
--- NOTE | 2020-05-02 19:30 | NUR ---
MS/RN OPENING NOTES RECEIVED PATIENT IN BED SLEEPING, PATIENT IS EASILY WAKENED. PATIENT IS ALERT AND ORIENTED X 3, THAI SPEAKING AND CAN UNDERSTAND SOME LAO. PATIENT HAS NO SIGNS OF SOB, RESPIRATIONS ARE UNLABORED. PATIENT STATES NO PAIN AT THIS TIME. ELLISON CATH IS IN PLACE DRAINING YELLOW URINE. IV ACCESS INTACT AND PATENT ON RIGHT FA #22 G. SAFETY MEASURES ARE IN PLACE, BED IS LOCKED AND IN LOW POSITION WITH SIDE RAILS UP X 2, CALL LIGHT HAS BEEN PLACED WITHIN REACH. WILL CONTINUE TO MONITOR PATIENT THROUGH OUT SHIFT.
[2020-05-02 20:00] VITALS: BP 139/60
[2020-05-02 20:39] VITALS: BP 139/60
[2020-05-03] MEDS: ALBUTEROL HALF STRENGTH 1.25 MG/3 ML VIAL.NEB NEB SCH ×7 (00:18→23:30)
[2020-05-03] MEDS: IPRATROPIUM NEB FS 0.5 MG/2.5 ML AMPUL.NEB NEB SCH ×7 (00:18→23:30)
[2020-05-03 06:19] LABS: BASOPHILS % (AUTO) 0.1 % (0.0-2.0); HEMATOCRIT 43 % (33-45); HEMOGLOBIN 13.3 g/dL (11.5-14.8); LYMPHOCYTES # (AUTO) 0.9 /CMM (0.8-4.8); LYMPHOCYTES % (AUTO) 8.4 % (20.0-44.0); MEAN CORPUSCULAR HGB CONC 31 g/dl (31.0-36.0); MEAN CORPUSCULAR VOLUME 91 fL (82-100); MONOCYTES # (AUTO) 0.9 /CMM (0.1-1.30); MONOCYTES % (AUTO) 8.4 % (2.0-12.0); NEUTROPHILS # (AUTO) 8.5 /CMM (1.8-8.9); NEUTROPHILS % (AUTO) 83.1 % (43.0-81.0); PLATELET COUNT (AUTO) 156 /CMM (150-450); RED BLOOD CELL COUNT(AUTO) 4.66 MIL/uL (4.0-5.2); WHITE BLOOD COUNT (AUTO) 10.2 K/uL (4.3-11.0)
--- NOTE | 2020-05-03 06:24 | NUR ---
MS/RN CLOSING NOTES PATIENT IN BED RESTING IS ALERT AND ORIENTED X 3, SLOVENIAN SPEAKING AND CAN UNDERSTAND TAMAZIGHT. PATIENT HAS NO SIGNS OF SOB, RESPIRATIONS ARE UNLABORED. ELLISON CATH IS IN PLACE DRAINING YELLOW URINE OUTPUT 1215ML. IV ACCESS INTACT AND PATENT ON RIGHT FA #22 G. SAFETY MEASURES ARE IN PLACE, BED IS LOCKED AND IN LOW POSITION WITH SIDE RAILS UP X 2, CALL LIGHT HAS BEEN PLACED WITHIN REACH. WILL CONTINUE TO MONITOR PATIENT THROUGH OUT SHIFT.
[2020-05-03 06:48] LABS: ALBUMIN 2.7 g/dL (3.4-5.0); BILIRUBIN,TOTAL 0.7 mg/dL (0.2-1.0); CALCIUM, SERUM 9.1 mg/dL (8.5-10.1); CREATININE 0.9 mg/dL (0.6-1.3); TOTAL PROTEIN, SERUM 6.1 g/dL (6.4-8.2)
[2020-05-03] MEDS: ACETAMINOPHEN 325 MG TABLET PO PRN (07:00)
--- NOTE | 2020-05-03 07:26 | NUR ---
RN NOTES CARBON DIOXIDE RESULT 42. ENDORSED TO AM NURSE ELSI HUFFMAN TO FOLLOW UP WITH MD. Result Comment: VERIFIED BY REPEAT ANALYSIS, VERBAL READBACK CONFIRMED AND CALLED RESULTS TO JOSE ANTONIO Fernandez RN 05/03/20 0700 BY JOSE ENRIQUE CORTÉS.
--- NOTE | 2020-05-03 07:30 | NUR ---
RN OPENING NOTES RECEIVED PATIENT IN BED AWAKE, A/OX4. NOT IN ANY FORM OF DISTRESS. NO SOB. DENIED ANY PAIN AT THIS TIME. IV ACCESS INTACT AND PATENT. KEPT PATIENT SAFE AND COMFORTABLE. BED IN LOW/LOCKED PSOTIION, SIDERAILS UPX2, CALL LIGHT IN REACH. WILL CONT TO MONITOR ACCORDINGLY.
[2020-05-03 08:00] VITALS: BP 188/83
[2020-05-03] MEDS ORDERED: APIXABAN 5 MG TABLET PO SCH (09:00)
[2020-05-03] MEDS: PANTOPRAZOLE 40 MG TABLET.DR PO SCH (09:09)
[2020-05-03] MEDS: methylPREDNISolone SOD SUCC 40 MG/ML VIAL IV SCH ×2 (09:09→16:52)
[2020-05-03] MEDS: GABAPENTIN 300 MG CAPSULE PO SCH ×3 (09:09→21:06)
[2020-05-03] MEDS: ASPIRIN 81 MG TAB.CHEW PO SCH (09:10)
[2020-05-03] MEDS: ISOSORBIDE DINITRATE (20MG) 20 MG TABLET PO SCH ×2 (09:12→16:52)
[2020-05-03] MEDS: DOCUSATE SODIUM 100 MG CAPSULE PO SCH (09:12)
[2020-05-03] MEDS: hydrALAZINE HCL 50 MG TABLET PO SCH ×3 (09:12→16:52)
[2020-05-03] MEDS: AMLODIPINE BESYLATE 5 MG TABLET PO SCH (09:12)
[2020-05-03] MEDS: Z GUARD REMEDY 2 OZ OINT TP SCH (09:26)
--- NOTE | 2020-05-03 11:07 | NUR ---
rn notes Called Dr Avendano to reported critical troponin of 1.160. MD order to LARISSA saravia. New order of lovenox 1mg/kg SQ BID. Orders verified read back and called back.
--- NOTE | 2020-05-03 11:46 | NUR ---
rn notes Charlotte Head made aware of US extremity venous study.
[2020-05-03 16:00] VITALS: BP 145/60
--- NOTE | 2020-05-03 19:34 | NUR ---
RN CLOSING NOTES PATIENT IN STABLE CONDITION. ALL NEEDS ATTENDED AND PROVIDED. ALL DUE MEDS GIVEN ORDERED. ASSISTED WITH ADLS. TURNED AND REPOSITIONED EVERY 2HRS AND NEEDED. KEPT PATIENT SAFE AND COMFORTABLE. BED IN LOW/LOCKED POSITION. SIDERAILS UPX2, CALL LIGHT IN REACH. ENDORSED TO NIGHT RN ACCORDINGLY.
--- NOTE | 2020-05-03 19:45 | NUR ---
RN NOTES RECEIVED PATIENT IN BED AWAKE, ALERT ORIENTED X4. NOT IN ANY FORM OF DISTRESS. NO SIGNS OF SHORTNESS OF BREATH DENIED ANY PAIN AT THIS TIME. IV ACCESS INTACT AND PATENT. KEPT PATIENT SAFE AND COMFORTABLE. SAFETY MEASURES IN PLACE BED IN LOW/LOCKED POSITION, SIDE RAILS UPX2, CALL LIGHT WITH IN EASY REACH. WILL CONTINUE TO MONITOR ACCORDINGLY.
[2020-05-03 20:00] VITALS: BP 139/61
[2020-05-03] MEDS: ENOXAPARIN SODIUM 60 MG/0.6 ML DISP.SYRIN SQ SCH (21:09)
[2020-05-04] MEDS: IPRATROPIUM NEB FS 0.5 MG/2.5 ML AMPUL.NEB NEB SCH ×5 (04:34→19:57)
[2020-05-04] MEDS: ALBUTEROL HALF STRENGTH 1.25 MG/3 ML VIAL.NEB NEB SCH ×5 (04:34→19:57)
--- NOTE | 2020-05-04 07:00 | NUR ---
MS RN OPENING NOTES RECEIVED PATIENT IN BED AWAKE AT THIS TIME, AO X 3, ABLE TO VERBALIZE NEEDS. NO SOB NOTED, RESPIRATIONS ARE UNLABORED. NO C/O PAIN AT THIS TIME. NO S/S OF ANY ACUTE DISTRESS NOTED. ELLISON CATH IS IN PLACE DRAINING TO GRAVITY CLEAR YELLOW URINE OUTPUT. IV ACCESS IN RFA G#22, INTACT AND PATENT. SAFETY PRECAUTIONS IN PLACE, BED IN LOWEST LOCKED POSITION, SIDE RAILS UP X 2, HOB ELEVATED, CALL LIGHT WITHIN REACH. WILL CONTINUE TO MONITOR
[2020-05-04 07:33] LABS: BASOPHILS % (AUTO) 0.1 % (0.0-2.0); EOSINOPHILS % (AUTO) 0.3 % (0.0-6.0); HEMATOCRIT 45 % (33-45); HEMOGLOBIN 14.1 g/dL (11.5-14.8); LYMPHOCYTES # (AUTO) 1.2 /CMM (0.8-4.8); LYMPHOCYTES % (AUTO) 11.2 % (20.0-44.0); MEAN CORPUSCULAR HGB CONC 32 g/dl (31.0-36.0); MEAN CORPUSCULAR VOLUME 91 fL (82-100); MONOCYTES # (AUTO) 0.7 /CMM (0.1-1.30); NEUTROPHILS # (AUTO) 8.5 /CMM (1.8-8.9); NEUTROPHILS % (AUTO) 81.4 % (43.0-81.0); PLATELET COUNT (AUTO) 145 /CMM (150-450); RED BLOOD CELL COUNT(AUTO) 4.94 MIL/uL (4.0-5.2); WHITE BLOOD COUNT (AUTO) 10.5 K/uL (4.3-11.0)
[2020-05-04] MEDS: PANTOPRAZOLE 40 MG TABLET.DR PO SCH (07:43)
[2020-05-04 07:54] LABS: CALCIUM, SERUM 9.4 mg/dL (8.5-10.1); CREATININE 0.8 mg/dL (0.6-1.3); POTASSIUM 5.4 mmol/L (3.5-5.1)
--- NOTE | 2020-05-04 08:05 | NUR ---
RECEIVED REPORT FROM ROBEL, APPOINTMENT SCHEDULER, ABOUT PATIENTS CARBON DIOXIDE 43 AND POTASSIUM 5.4. REPORT READ BACK. KAMILAH MOLINA MADE AWARE. AWAITING ORDERS. WILL CONTINUE TO MONITOR
[2020-05-04 08:19] VITALS: BP 154/74
[2020-05-04] MEDS ORDERED: FUROSEMIDE 20 MG/2 ML VIAL IV ONE (08:30)
[2020-05-04] MEDS: GABAPENTIN 300 MG CAPSULE PO SCH ×3 (09:12→21:27)
[2020-05-04] MEDS: ASPIRIN 81 MG TAB.CHEW PO SCH (09:14)
[2020-05-04] MEDS: DILTIAZEM HCL CD 240 MG PO SCH (09:14)
[2020-05-04] MEDS: hydrALAZINE HCL 50 MG TABLET PO SCH ×3 (09:15→16:34)
[2020-05-04] MEDS: DOCUSATE SODIUM 100 MG CAPSULE PO SCH (09:15)
[2020-05-04] MEDS: ISOSORBIDE DINITRATE (20MG) 20 MG TABLET PO SCH ×2 (09:16→16:34)
[2020-05-04] MEDS: methylPREDNISolone SOD SUCC 40 MG/ML VIAL IV SCH (09:19)
[2020-05-04] MEDS: Z GUARD REMEDY 2 OZ OINT TP SCH (09:19)
[2020-05-04] MEDS: ENOXAPARIN SODIUM 60 MG/0.6 ML DISP.SYRIN SQ SCH ×2 (09:21→21:28)
[2020-05-04] MEDS ORDERED: SODIUM POLYSTYRENE SULFONATE 15 G/60 ML BOTTLE PO ONE (09:30)
[2020-05-04] MEDS: ACETAMINOPHEN 325 MG TABLET PO PRN (10:04)
--- NOTE | 2020-05-04 10:29 | NUR ---
RECEIVED REPORT FROM ROBEL, SEWING INSPECTOR, PATIENT'S TROPONIN 0.777. REPORT READ BACK. AARON, CHARGE NURSE AND KAMILAH MOLINA MADE AWARE. AWAITING ORDERS. WILL CONTINUE TO MONITOR
[2020-05-04 16:09] VITALS: BP 151/66
--- NOTE | 2020-05-04 18:53 | NUR ---
MS RN CLOSING NOTES PT IN BED AWAKE AT THIS TIME. PT REMAINED STABLE THROUGHOUT SHIFT. PT KEPT CLEAN AND DRY. ALL NEEDS, CARE, TREATMENT AND MEDICATIONS ADMINISTERED ANTICIPATED PER ORDER. ELLISON CATH IS IN PLACE DRAINING TO GRAVITY CLEAR YELLOW URINE OUTPUT OF 1800ML. SAFETY PRECAUTIONS IN PLACE, BED IN LOWEST LOCKED POSITION, SIDE RAILS UP X 2, HOB ELEVATED, CALL LIGHT WITHIN REACH. WILL ENDORSE TO YIELD ANALYST NURSE FOR HU
--- NOTE | 2020-05-04 19:30 | NUR ---
MS/RN OPENING NOTES RECEIVED PATIENT RESTING IN BED. AWAKE, ALERT AND ORIENTED X 3. PATIENT SHOWS NO SIGNS OF SOB, NO RESPIRATORY DISTRESS NOTED. PATIENT IS ON 2L OXYGEN TOLERATING WELL. PATIENT STATES NO PAIN AT THE MOMENT. IV ACCESS INTACT ON RIGHT FA #22G SL. ELLISON CATH IS IN PLACE DRAINING CLEAR YELLOW URINE. SAFETY MEASURES ARE IN PLACE, BED IS LOCKED AND IN LOWEST POSITION WITH SIDE RAILS UP X 2. CALL LIGHT IS WITHIN REACH. WILL CONTINUE TO MONITOR PATIENT THROUGH OUT SHIFT.
[2020-05-04 20:00] VITALS: BP 120/55
[2020-05-05] MEDS: ALBUTEROL HALF STRENGTH 1.25 MG/3 ML VIAL.NEB NEB SCH ×5 (00:36→19:26)
[2020-05-05] MEDS: IPRATROPIUM NEB FS 0.5 MG/2.5 ML AMPUL.NEB NEB SCH ×5 (00:36→19:25)
[2020-05-05] MEDS: ACETAMINOPHEN 325 MG TABLET PO PRN (01:31)
--- NOTE | 2020-05-05 01:35 | NUR ---
MS/RN NOTES PATIENT WAS COMPLAINING OF MILD PAIN AT THE KNEES BILATERAL. TYLENOL 625 MG PO WAS GIVEN. WILL CONTINUE TO MONITOR PATIENT.
--- NOTE | 2020-05-05 06:05 | NUR ---
MS/RN PATIENT RESTING IN BED. AWAKE, ALERT AND ORIENTED X 3. PATIENT SHOWS NO SIGNS OF SOB, NO RESPIRATORY DISTRESS NOTED. PATIENT IS ON 2L OXYGEN TOLERATING WELL. PATIENT STATES NO PAIN AT THE MOMENT. IV ACCESS INTACT ON RIGHT FA #22G SL. ELLISON CATH IS IN PLACE DRAINING CLEAR YELLOW URINE OUTPUT 800ML. SAFETY MEASURES ARE IN PLACE, BED IS LOCKED AND IN LOWEST POSITION WITH SIDE RAILS UP X 2. CALL LIGHT IS WITHIN REACH. WILL ENDORSE CARE TO DAY SHIFT NURSE.
[2020-05-05 06:15] LABS: BASOPHILS % (AUTO) 0.1 % (0.0-2.0); EOSINOPHILS % (AUTO) 1.1 % (0.0-6.0); HEMATOCRIT 42 % (33-45); HEMOGLOBIN 12.9 g/dL (11.5-14.8); LYMPHOCYTES # (AUTO) 1.2 /CMM (0.8-4.8); LYMPHOCYTES % (AUTO) 10.5 % (20.0-44.0); MEAN CORPUSCULAR HGB CONC 31 g/dl (31.0-36.0); MEAN CORPUSCULAR VOLUME 90 fL (82-100); MONOCYTES % (AUTO) 9.2 % (2.0-12.0); NEUTROPHILS # (AUTO) 8.8 /CMM (1.8-8.9); NEUTROPHILS % (AUTO) 79.1 % (43.0-81.0); PLATELET COUNT (AUTO) 138 /CMM (150-450); WHITE BLOOD COUNT (AUTO) 11.1 K/uL (4.3-11.0)
[2020-05-05 06:41] LABS: ALANINE AMINOTRANSFERASE 25 U/L (12-78); ALBUMIN 2.7 g/dL (3.4-5.0); ALKALINE PHOSPHATASE 49 U/L (46-116); ASPARTATE AMINOTRANSFERASE 9 U/L (15-37); BILIRUBIN,TOTAL 0.8 mg/dL (0.2-1.0); CALCIUM, SERUM 8.9 mg/dL (8.5-10.1); CHLORIDE 99 mmol/L (98-107); GLUCOSE 94 mg/dL (74-106); PHOSPHORUS 3.7 mg/dL (2.5-4.9); POTASSIUM 4.7 mmol/L (3.5-5.1); SODIUM SERUM 139 mmol/L (136-145); TOTAL PROTEIN, SERUM 5.9 g/dL (6.4-8.2); UREA NITROGEN, BLOOD 39 mg/dL (7-18)
[2020-05-05 06:51] LABS: CARBON DIOXIDE 47 mmol/L (21-32)
--- NOTE | 2020-05-05 07:43 | NUR ---
MS/RN OPENING NOTES RECEIVED PATIENT IN BED. AWAKE WATCHING TV, ALERT AND ORIENTED X 3. PATIENT SHOWS NO SIGNS OF SOB, NO RESPIRATORY DISTRESS NOTED. PATIENT IS ON 2L OXYGEN TOLERATING WELL. PATIENT DENIES PAIN AT THIS TIME. IV ACCESS INTACT ON RIGHT FA #22G SL PATENT AND INTACT. ELLISON CATH IS IN PLACE DRAINING CLEAR YELLOW NOTED. SAFETY MEASURES ARE IN PLACE, BED IS LOCKED AND IN LOWEST POSITION WITH SIDE RAILS UP X 2. CALL LIGHT IS WITHIN REACH. WILL CONTINUE TO MONITOR.
[2020-05-05] MEDS: PANTOPRAZOLE 40 MG TABLET.DR PO SCH (07:57)
[2020-05-05 08:00] VITALS: BP 162/68
[2020-05-05] MEDS: GABAPENTIN 300 MG CAPSULE PO SCH ×2 (08:58→13:29)
[2020-05-05] MEDS: hydrALAZINE HCL 50 MG TABLET PO SCH ×3 (08:59→17:00)
[2020-05-05] MEDS: DOCUSATE SODIUM 100 MG CAPSULE PO SCH (08:59)
[2020-05-05] MEDS: ASPIRIN 81 MG TAB.CHEW PO SCH (08:59)
[2020-05-05] MEDS: DILTIAZEM HCL CD 240 MG PO SCH (08:59)
[2020-05-05] MEDS: ISOSORBIDE DINITRATE (20MG) 20 MG TABLET PO SCH ×2 (09:00→17:32)
[2020-05-05] MEDS: ENOXAPARIN SODIUM 60 MG/0.6 ML DISP.SYRIN SQ SCH (09:03)
[2020-05-05] MEDS: Z GUARD REMEDY 2 OZ OINT TP SCH (09:04)
[2020-05-05] MEDS ORDERED: ISOS20TA8 PO (11:43)
[2020-05-05] MEDS ORDERED: HYDR-4077 PO (11:43)
[2020-05-05] MEDS ORDERED: ALBU1.25 NEB (11:43)
[2020-05-05] MEDS ORDERED: DILT240C88 PO (11:43)
[2020-05-05] MEDS ORDERED: APIX5TAB PO ×2 (11:43→11:50)
[2020-05-05] MEDS ORDERED: IPRA0.2S9 NEB (11:43)
--- NOTE | 2020-05-05 12:00 | NUR ---
MS/RN NOTES PATIENT BP 104/45 HR 68 HYDRALAZINE 100MG PO IS WITH HELD. WILL CONTINUE TO MONITOR.
[2020-05-05 16:00] VITALS: BP 112/44
[2020-05-05 17:32] VITALS: BP 112/52
--- NOTE | 2020-05-05 17:32 | NUR ---
MS/RN NOTES PATIENT BP 112/52 HR 68 HYDRALAZINE 100MG PO AND ISOSORBIDE DINITRATE 40MG PO IS WITH HELD. WILL CONTINUE TO MONITOR.
--- NOTE | 2020-05-05 19:23 | NUR ---
MS/RN NOTES PATIENT IS ALERT AND ORIENTED X4.PATIENT DENIES PAIN AT THIS TIME. RESPIRATION REGULAR AND UNLABORED. THE PATIENT IN NO APPARENT RESPIRATORY DISTRESS. SEEN AND EXAMINED BY MD WITH ORDERS MADE AND CARRIED OUT. ALL DUE MEDICATIONS WAS GIVEN. PATIENT WAS GIVEN DISCHARGED INSTRUCTIONS AND PATIENT VERBALIZED UNDERSTANDING. THE PATIENT LEFT THE HOSPITAL IN STABLE CONDITION, PICKED UP BY 2 EMT VIA AMBULANCE.
== END 2020-05-05 19:00 | DRG 280 ==
LOC: ER 19:07 → ICU 22:37 → TELE 04-29 16:58 → MED 04-30 09:31
PROVIDERS: ATTEND Nurse Practitioner Acute Care
PROC: 5A09357 Assistance with Respiratory Ventilation, Less than 24 Consecutive Hours, Continuous Positive Airway Pressure (ICD-10-PCS; principal; 2020-04-27)
DX: I13.0 Hypertensive heart and chronic kidney disease with heart failure and stage 1 through stage 4 chronic kidney disease, or unspecified chronic kidney disease (principal); J96.21 Acute and chronic respiratory failure with hypoxia; I21.4 Non-ST elevation (NSTEMI) myocardial infarction; J96.22 Acute and chronic respiratory failure with hypercapnia; N17.0 Acute kidney failure with tubular necrosis; J18.9 Pneumonia, unspecified organism; I50.31 Acute diastolic (congestive) heart failure; N39.0 Urinary tract infection, site not specified; Z68.42 Body mass index [BMI] 45.0-49.9, adult; E66.2 Morbid (severe) obesity with alveolar hypoventilation; E44.0 Moderate protein-calorie malnutrition; J44.0 Chronic obstructive pulmonary disease with (acute) lower respiratory infection; E87.1 Hypo-osmolality and hyponatremia; E11.22 Type 2 diabetes mellitus with diabetic chronic kidney disease; N18.9 Chronic kidney disease, unspecified; D72.829 Elevated white blood cell count, unspecified; B96.4 Proteus (mirabilis) (morganii) as the cause of diseases classified elsewhere; E87.5 Hyperkalemia; E88.09 Other disorders of plasma-protein metabolism, not elsewhere classified; Z79.01 Long term (current) use of anticoagulants; Z86.718 Personal history of other venous thrombosis and embolism; K21.9 Gastro-esophageal reflux disease without esophagitis; I25.10 Atherosclerotic heart disease of native coronary artery without angina pectoris; J84.10 Pulmonary fibrosis, unspecified
CPT/HCPCS: 36415; 36600; 71045-TC; 71250-TC; 80048-TC; 80053-TC; 80061-TC; 81000-TC; 82550-TC; 82570-TC; 82728-TC; 82803-TC; 83605-TC; 83615-TC; 83735-TC; 83880; 83970; 84100-TC; 84155; 84155-TC; 84165; 84300-TC; 84443-TC; 84484-TC; 85025-TC; 85378-TC; 85385-TC; 85610-TC; 85652-TC; 85730-TC; 86140-TC; 87040-TC; 87081-TC; 87086-TC; 87186-TC; 93307-TC; 93970-TC; 94660; 94760-TC; 94762-TC; 94799-TC; 97110-TC; 97112-TC; 97530-TC; 99082-TC; A4216; C9113; G0378; J1644; J1650; J1940; J1956; J2920; J2930; J7050; U0003-CS

== ENCOUNTER 2020-06-06 11:53 | Inpatient (IN) | payer OTHER ==
[~2020-06-06] VITALS: Ht 154.9 cm; Wt 106.6 kg
[~2020-06-06 11:53] MED LIST: ALBU1.25 NEB; APIX5TAB PO; ASPI-1169 PO; DILT240C88 PO; DOCU100C36 PO; GABA-532 PO; HYDR-4077 PO; IPRA0.2S9 NEB; ISOS20TA8 PO; PANT40TA4 PO; TERA2CAP4 PO
--- NOTE | 2020-06-06 11:57 | NUR ---
BIBRA FROM SNF TO ER BED 12. AAOX4. NOT IN RESP DISTRESS. ON O2 VIA NC @ 2LPM BASELINE. AAOX3. BEDBOUND. BROUGHT IN FOR AN INCREASING R ARM SWELLING. PT NOTED WITH EDEMA + 4 ON THE R ARM. PT IS PRESENT WITH ALL EXTREMITY EDEMA. BLE +4, LLE +3, ADRI +4. DENIES CP. WAS AT THE BEDSIDE FOR EVAL. ORDERS RECEIVED NOTED AND CARRIED OUT. PT ON MONITOR
--- NOTE | 2020-06-06 12:00 | NUR ---
Rachael pichardo in [facility] - 06/06/20 at 1429 by SCOTT PT TRANSPORTED TO BACK TO HER FACILITY VIA AMBULANCE WITH 2 AMBULANCE STAFF. REPORT GIVEN. PT IS IN STABLE CONDITIION FOR TRANSPORT BACK TO HER FACILITY.
[2020-06-06 12:34] LABS: BASOPHILS % (AUTO) 0.5 % (0.0-2.0); EOSINOPHILS % (AUTO) 2.2 % (0.0-6.0); HEMATOCRIT 34 % (33-45); HEMOGLOBIN 10.4 g/dL (11.5-14.8); LYMPHOCYTES # (AUTO) 1.1 /CMM (0.8-4.8); LYMPHOCYTES % (AUTO) 15.5 % (20.0-44.0); MEAN CORPUSCULAR HGB CONC 31 g/dl (31.0-36.0); MEAN CORPUSCULAR VOLUME 94 fL (82-100); MONOCYTES # (AUTO) 0.5 /CMM (0.1-1.30); MONOCYTES % (AUTO) 7.1 % (2.0-12.0); NEUTROPHILS # (AUTO) 5.4 /CMM (1.8-8.9); NEUTROPHILS % (AUTO) 74.7 % (43.0-81.0); PLATELET COUNT (AUTO) 206 /CMM (150-450); WHITE BLOOD COUNT (AUTO) 7.2 K/uL (4.3-11.0)
[2020-06-06 12:44] LABS: CALCIUM, SERUM 9.1 mg/dL (8.5-10.1); CREATININE 0.8 mg/dL (0.6-1.3); POTASSIUM 4.3 mmol/L (3.5-5.1)
[2020-06-06 12:50] LABS: ALBUMIN 2.7 g/dL (3.4-5.0); BILIRUBIN,DIRECT 0.2 mg/dL (0.0-0.2); BILIRUBIN,TOTAL 0.5 mg/dL (0.2-1.0); TOTAL PROTEIN, SERUM 6.6 g/dL (6.4-8.2)
[2020-06-06 12:51] LABS: APPEARANCE,URINE Clear (CLEAR); BILIRUBIN,URINE Negative (NEGATIVE); BLOOD, URINE Negative Ery/uL (NEGATIVE); COLOR,URINE Yellow (YELLOW); KETONES,URINE Trace (NEGATIVE); LEUKOCYTE ESTERASE ,URINE Trace (NEGATIVE); NITRITE, URINE Negative (NEGATIVE); PH,URINE 6.5 (5.0-8.0); PROTEIN,URINE 30 mg/dl (NEGATIVE); UGLUCOSE Negative (NEGATIVE)
[2020-06-06] MEDS ORDERED: ASPIRIN 325 MG TABLET PO ONE (13:00)
[2020-06-06] MEDS ORDERED: FUROSEMIDE 40 MG/4 ML VIAL IV ONE (13:00)
[2020-06-06] MEDS ORDERED: NITROGLYCERIN PACKET 1 GM PACKET TD ONE (13:00)
[2020-06-06 13:04] LABS: BACTERIA,URINE Few /HPF (None Seen); RBC,URINE 0-2 /HPF (0-2); SQUAMOUS EPITHELIAL CELL,UR Few /HPF (None Seen)
[2020-06-06] MEDS ORDERED: ASPIRIN 325 MG TABLET ONE (13:08)
[2020-06-06] MEDS ORDERED: NITROGLYCERIN PACKET 1 GM PACKET ONE (13:08)
[2020-06-06] MEDS ORDERED: FUROSEMIDE 40 MG/4 ML VIAL ONE (13:08)
[2020-06-06] MEDS ORDERED: ATOR40TA PO (13:09)
[2020-06-06] MEDS ORDERED: DILT240T12 PO (13:09)
[2020-06-06] MEDS ORDERED: FLUT1BLS INH (13:09)
[2020-06-06] MEDS ORDERED: LISI1TAB32 PO (13:09)
[2020-06-06] MEDS ORDERED: GABA300C PO (13:09)
[2020-06-06] MEDS ORDERED: HYDR-4077 PO (15:12)
[2020-06-06] MEDS ORDERED: IPRA4AER IH (15:12)
--- NOTE | 2020-06-06 15:21 | NUR ---
CALLED RN SUP FOR ROOM ASSIGNMENT
--- NOTE | 2020-06-06 16:01 | NUR ---
NURSING SUP GAVE TELE BED 105.
--- NOTE | 2020-06-06 16:25 | NUR ---
REPORT GIVEN TO ELSI OWUSU FOR HU
--- NOTE | 2020-06-06 16:37 | NUR ---
PT TRANSPORTED TO UNIT ON GURNEY WITH EMT AND RN AT BEDSIDE W/ ACLS PROTOCOL. NAD NOTED DURING TRANSPORT.
[2020-06-06] MEDS: FUROSEMIDE 40 MG/4 ML VIAL IV SCH ×3 (17:56→23:05)
[2020-06-06] MEDS: ISOSORBIDE DINITRATE (20MG) 20 MG TABLET PO SCH (17:57)
[2020-06-06] MEDS: APIXABAN 5 MG TABLET PO SCH (17:58)
--- NOTE | 2020-06-06 19:40 | NUR ---
RN OPENING NOTE RECEIVED PATIENT IN BED RESTING ALERT ORIENTED X4 VERBALLY RESPONSIVE NO SOB NOT ACUTE DISTRESS NOTED AT THIS TIME,ON OXYGEN 3L VIA NASAL CANNULA,O2:95%,IV SITE IS ON RIGHT AC PATENT INTACT,CONTINENT TO BOWEL/BLADDER USING BEDPAN,IMPLEMENT SAFETY MEASURE,KEEP CALL LIGHT WITHIN REACH,CONTINUE TO MONITOR.
--- NOTE | 2020-06-06 20:00 | NUR ---
RN CLOSING NOTES ENDORSED PT TO PM NURSE FOR HU. PATIENT IS A/O X 4. PATIENT ON NASAL CANULA 3L, NO S/S OF RESPIRATORY DISTRESS. TELE READING SR/ST @ 60'S. PATIENT HAS RAC # 20. SAFETY MEASURES IN PLACE, BED LOCKED AND IN LOWEST POSITION, CALL LIGHT WITHIN EASY REACH.
[2020-06-06] MEDS ORDERED: POTASSIUM CHLORIDE 20 MEQ TAB.PRT.SR PO ONE (21:00)
[2020-06-06] MEDS ORDERED: ONDANSETRON HCL/PF 4 MG/2 ML VIAL IVP PRN (21:00)
[2020-06-06] MEDS ORDERED: ENOXAPARIN SODIUM 40 MG/0.4 ML DISP.SYRIN SQ SCH (21:00)
[2020-06-06] MEDS ORDERED: Z GUARD REMEDY 2 OZ OINT TP PRN (21:00)
[2020-06-06] MEDS: ATORVASTATIN 40 MG TABLET PO SCH (21:23)
[2020-06-06 22:00] VITALS: BP 156/65
[2020-06-07 02:00] VITALS: BP 148/68
[2020-06-07] MEDS: ACETAMINOPHEN 325 MG TABLET PO PRN ×2 (04:48→19:53)
--- NOTE | 2020-06-07 04:49 | NUR ---
RN NOTE ACETAMINOPHEN 650 MG PRN GIVEN FOR MILD PAIN 01/11
[2020-06-07 06:04] LABS: HEMOGLOBIN 10.5 g/dL (11.5-14.8); LYMPHOCYTES # (AUTO) 1.1 /CMM (0.8-4.8); RED BLOOD CELL COUNT(AUTO) 3.66 MIL/uL (4.0-5.2); WHITE BLOOD COUNT (AUTO) 7.8 K/uL (4.3-11.0)
[2020-06-07 06:33] LABS: THYROID STIMULATING HORMONE 2.786 uIU/mL (0.358-3.74)
[2020-06-07 06:35] LABS: ALBUMIN 2.8 g/dL (3.4-5.0); BILIRUBIN,TOTAL 0.7 mg/dL (0.2-1.0); CALCIUM, SERUM 8.6 mg/dL (8.5-10.1); CREATININE 0.9 mg/dL (0.6-1.3); MAGNESIUM 1.8 mg/dL (1.8-2.4); PHOSPHORUS 4.4 mg/dL (2.5-4.9); POTASSIUM 3.9 mmol/L (3.5-5.1); TOTAL PROTEIN, SERUM 6.5 g/dL (6.4-8.2)
[2020-06-07 06:37] LABS: BASOPHILS % (AUTO) 0.5 % (0.0-2.0); EOSINOPHILS % (AUTO) 2.3 % (0.0-6.0); HEMATOCRIT 33 % (33-45); LYMPHOCYTES % (AUTO) 13.9 % (20.0-44.0); MEAN CORPUSCULAR HGB CONC 32 g/dl (31.0-36.0); MEAN CORPUSCULAR VOLUME 91 fL (82-100); MONOCYTES # (AUTO) 0.6 /CMM (0.1-1.30); MONOCYTES % (AUTO) 8.1 % (2.0-12.0); NEUTROPHILS # (AUTO) 5.9 /CMM (1.8-8.9); NEUTROPHILS % (AUTO) 75.2 % (43.0-81.0); PLATELET COUNT (AUTO) 208 /CMM (150-450)
--- NOTE | 2020-06-07 06:58 | NUR ---
RN CLOSING NOTE PATIENT REMAINS ALERT ORIENTED X4 VERBALLY RESPONSIVE ON 3L OXYGEN VIA NASAL CANNULA, NO SOB NOT ACUTE DISTRESS NOTED,ALL DUE MEDS GIVEN MD ORDERED,KEPT CLEAN AN DRY ALL THE TIME,KEPT CALL LIGHT WITHIN REACH ALL NEEDS MET.ENDORSE NEXT COMING SHIFT FOR CONTINUATION OF CARE.
--- NOTE | 2020-06-07 07:30 | NUR ---
RN OPENING NOTE: RECEIVED PATIENT IN BED THIS MORNING. PATIENT IS ALERT AND ORIENTED X4, RESPONDS APPROPRIATELY. ON 3L/MIN VIA NC, SATING WELL. NO SIGNS OF ACUTE DISTRESS NOTED. #20 LAC. SAFETY MEASURES IMPLEMENTED, BED IN LOWEST POSITION, LOCKED, SIDE RAILS UP, CALL LIGHT WITHIN REACH. WILL CONTINUE TO MONITOR PATIENT FOR CHANGES.
[2020-06-07 08:00] VITALS: BP 153/70
[2020-06-07] MEDS: PANTOPRAZOLE 40 MG TABLET.DR PO SCH (08:16)
[2020-06-07] MEDS: DOCUSATE SODIUM 100 MG CAPSULE PO SCH (08:17)
[2020-06-07] MEDS: ASPIRIN 81 MG TAB.CHEW PO SCH (08:17)
[2020-06-07] MEDS: APIXABAN 5 MG TABLET PO SCH ×2 (08:18→16:21)
[2020-06-07] MEDS: ISOSORBIDE DINITRATE (20MG) 20 MG TABLET PO SCH ×2 (08:18→16:24)
[2020-06-07] MEDS: POTASSIUM CHLORIDE 20 MEQ TAB.PRT.SR PO SCH ×3 (09:32→11:04)
[2020-06-07] MEDS: FUROSEMIDE 100 MG/10 ML VIAL IV SCH ×3 (09:33→16:20)
[2020-06-07 10:00] VITALS: BP 153/70
[2020-06-07 10:25] LABS: ABG BASE EXCESS 12.4 mmol/L; ABG PCO2 68.6 mmHg (35.0-45.0); ABG PH 7.383 (7.350-7.450); ABG PO2 84.8 mmHg (75.0-100.0); AaDO2 63.1 mmHg; COHb 0.6 % (0.5-1.5); MetHb 0.3 % (0.0-1.5); O2Hb 95.1 % (94.0-97.0); SITE, ABG Right Radial; VENT MODE, BG Nasal Cannula
[2020-06-07 16:00] VITALS: BP 141/98
--- NOTE | 2020-06-07 19:04 | NUR ---
RN CLOSING NOTE: PATIENT REMAINS IN BED. NO SIGNS OF ACUTE DISTRESS NOTED AT THIS TIME. SAFETY MEASURES IMPLEMENTED, BED IN LOWEST POSITION, LOCKED, SIDE RAILS UP, CALL LIGHT WITHIN REACH. WILL ENDORSE TO ONCOMING SHIFT RN FOR CONTINUITY OF CARE.
--- NOTE | 2020-06-07 19:05 | NUR ---
RN OPENING NOTES RECEIVED PT ON BED AWAKE A/O X4 ON O2 VIA NC 3L SPO2 @ 96% NO SIGN AND SYMPTOMS OF RESPIRATORY DISTRESS,ON DROPLET ISOLATION TO R/O COVID, SAFETY MEASURE MAINTAINED WILL CONT TO MONITOR
[2020-06-07] MEDS: ATORVASTATIN 40 MG TABLET PO SCH (22:14)
[2020-06-08] VITALS: BP 144/99
[2020-06-08] MEDS: ACETAMINOPHEN 325 MG TABLET PO PRN ×2 (03:42→13:19)
[2020-06-08 06:33] LABS: BASOPHILS % (AUTO) 0.5 % (0.0-2.0); EOSINOPHILS % (AUTO) 2.4 % (0.0-6.0); HEMATOCRIT 33 % (33-45); HEMOGLOBIN 10.6 g/dL (11.5-14.8); LYMPHOCYTES # (AUTO) 1.5 /CMM (0.8-4.8); LYMPHOCYTES % (AUTO) 19.4 % (20.0-44.0); MEAN CORPUSCULAR HGB CONC 32 g/dl (31.0-36.0); MEAN CORPUSCULAR VOLUME 91 fL (82-100); MONOCYTES # (AUTO) 0.6 /CMM (0.1-1.30); MONOCYTES % (AUTO) 7.8 % (2.0-12.0); NEUTROPHILS # (AUTO) 5.3 /CMM (1.8-8.9); NEUTROPHILS % (AUTO) 69.9 % (43.0-81.0); PLATELET COUNT (AUTO) 205 /CMM (150-450); RED BLOOD CELL COUNT(AUTO) 3.62 MIL/uL (4.0-5.2); WHITE BLOOD COUNT (AUTO) 7.6 K/uL (4.3-11.0)
[2020-06-08 06:48] LABS: ALBUMIN 2.8 g/dL (3.4-5.0); BILIRUBIN,TOTAL 0.6 mg/dL (0.2-1.0); CALCIUM, SERUM 8.7 mg/dL (8.5-10.1); MAGNESIUM 1.8 mg/dL (1.8-2.4); PHOSPHORUS 4.6 mg/dL (2.5-4.9); POTASSIUM 4.4 mmol/L (3.5-5.1); TOTAL PROTEIN, SERUM 6.5 g/dL (6.4-8.2)
--- NOTE | 2020-06-08 06:57 | NUR ---
RN CLOSING NOTES PT ON BED ASLEEP EASY TO AWAKE NO SIGN AND SYMPTOMS OF ANY DISTRESS ON 02 3L VIA NC SPO2 95% DROPLET ISOLATION MAINTAINED TO R/O COVID, NO SIGNIFICANT CHANGES ON CONDITION NOTED, ALL NEEDS ATTENDED SAFETY MEASURE OBSERVED WILL ENDORSED TO AM SHIFT NURSE
--- NOTE | 2020-06-08 07:48 | NUR ---
RN OPENING NOTES: PT IN BED RESTING. PT IS ON 3L NC. NO SIGNS OF RESPIRATORY DISTRESS, DIFFICULTY BREATHING OR ANY SIGNS OF PAIN.PT IS ON TELE MONITOR SR 60-70. PT IS A/OX4. IV RAC#20. PTS BED IS IN THE LOWEST POSITION, LOCKED SIDE RAILS UP PER PROTOCOL, CALL LIGHT WITHIN REACH. WILL CONTINUE TO MONITOR.
[2020-06-08 08:00] VITALS: BP 147/71
[2020-06-08] MEDS: APIXABAN 5 MG TABLET PO SCH ×2 (08:51→17:23)
[2020-06-08] MEDS: ASPIRIN 81 MG TAB.CHEW PO SCH (08:51)
[2020-06-08] MEDS: ISOSORBIDE DINITRATE (20MG) 20 MG TABLET PO SCH ×2 (08:52→17:23)
[2020-06-08] MEDS: DOCUSATE SODIUM 100 MG CAPSULE PO SCH (08:52)
[2020-06-08] MEDS: PANTOPRAZOLE 40 MG TABLET.DR PO SCH (08:52)
--- NOTE | 2020-06-08 08:57 | NUR ---
DR SCOTT AWARE OF THE CRITICAL CO2 LEVEL OF 43
--- NOTE | 2020-06-08 15:41 | NUR ---
SPOKE WITH CM. INFORMED PATIENT THAT SHE WILL BE DC TO [facility], AWAITING ROOM AVAILABILITY. CM WILL SPEAK TO SON REGARDING TRANSFER.
[2020-06-08 16:00] VITALS: BP 160/97
--- NOTE | 2020-06-08 17:44 | NUR ---
RN NOTES: PTS BP 160/97, BP MEDS GIVEN. WILL RECHECK BP AND REPORT TO MD IF ITS STILL ELEVATED.
--- NOTE | 2020-06-08 18:49 | NUR ---
RN NOTES: PTS BP REMAINED ELEVATED AFTER THE BP MEDICATION, DR WAS NOTIFIED WAITING FOR THE PRN BP MED. WILL ENDORSE TO THE P SHIFT NURSE.
--- NOTE | 2020-06-08 18:53 | NUR ---
RN CLOSING NOTES: PT IN BED NO SIGNS OF RESPIRATORY DISTRESS, DIFFICULTY BREATHING AND PAIN. PT IS ON 3L OXYGEN 95%. RAC #18. SAFETY MEASURES TAKEN CALL LIGHT WITHIN REACH. PT IS READY FOR DISCHARGE, WAITING TO BE PICKED UP. WILL ENDORSE TO THE PM NURSE.
--- NOTE | 2020-06-08 19:10 | NUR ---
RN OPENING NOTES: Rec'd pt awake in bed A&Ox4. On isolation precautions for R/O Covid. On 3LPm NC tolerating well. No SOB or respiratory distress noted. SR on tele monitor. IV site on RAC #20 patent and flushed. Dressing c/d/i. Kerr cath in place patent and draining urine. Safety measures in place. Awaiting bed to be D/C'd to another hospital. Will continue to monitor.
--- NOTE | 2020-06-08 19:24 | NUR ---
RN NOTE: AM nurse paged Dr. Timothy Aguero for high BP. Rec'd orders to page if SBP >175. Noted, will continue to monitor.
[2020-06-08 20:00] VITALS: BP 119/89
[2020-06-08] MEDS: ATORVASTATIN 40 MG TABLET PO SCH (21:05)
--- NOTE | 2020-06-08 21:42 | NUR ---
RN NOTE: [id number]: Rec'd call from REZA Morin, hold DC to [facility] - no bed available. Stated will f/u in AM.
[2020-06-09 04:00] VITALS: BP 153/53
[2020-06-09 06:35] LABS: BASOPHILS % (AUTO) 0.4 % (0.0-2.0); EOSINOPHILS % (AUTO) 2.4 % (0.0-6.0); HEMATOCRIT 33 % (33-45); HEMOGLOBIN 10.5 g/dL (11.5-14.8); LYMPHOCYTES # (AUTO) 1.5 /CMM (0.8-4.8); LYMPHOCYTES % (AUTO) 18.7 % (20.0-44.0); MEAN CORPUSCULAR HGB CONC 32 g/dl (31.0-36.0); MEAN CORPUSCULAR VOLUME 90 fL (82-100); MONOCYTES # (AUTO) 0.5 /CMM (0.1-1.30); MONOCYTES % (AUTO) 6.9 % (2.0-12.0); NEUTROPHILS # (AUTO) 5.6 /CMM (1.8-8.9); NEUTROPHILS % (AUTO) 71.6 % (43.0-81.0); PLATELET COUNT (AUTO) 192 /CMM (150-450); RED BLOOD CELL COUNT(AUTO) 3.64 MIL/uL (4.0-5.2); WHITE BLOOD COUNT (AUTO) 7.8 K/uL (4.3-11.0)
[2020-06-09 07:02] LABS: CALCIUM, SERUM 8.9 mg/dL (8.5-10.1); CREATININE 0.7 mg/dL (0.6-1.3); MAGNESIUM 1.8 mg/dL (1.8-2.4); PHOSPHORUS 3.7 mg/dL (2.5-4.9); POTASSIUM 4.1 mmol/L (3.5-5.1)
--- NOTE | 2020-06-09 07:03 | NUR ---
RN CLOSING NOTES: Pt resting in bed, A&Ox4. On isolation for R/O Covid. On 2LPm NC tolerating well. No SOB or respiratory distress noted. No acute changes noted throughout shift. All meds given as ordered. Kept clean/dry. RAC #20 patent and flushed. Awaiting bed at [facility] to transfer pt. Safety measures in place. Will endorse to AM nurse for HU.
--- NOTE | 2020-06-09 07:15 | NUR ---
RN OPENING NOTES: Received pt awake in bed A&Ox4. On isolation precautions to R/O Covid. On cont 02 via NC @ 3lpm being tolerated well. No SOB or respiratory distress noted. Able to make needs known. No pain reported by patient. IV site on RAC #20 patent and flushed. Dressing c/d/i. Kerr cath in place patent and draining urine. Call light in reach. Bed locked, low and at semi-arisa's position. Safety ensured and observed. Will continue to monitor.
[2020-06-09] MEDS: PANTOPRAZOLE 40 MG TABLET.DR PO SCH (07:50)
[2020-06-09] MEDS: ACETAMINOPHEN 325 MG TABLET PO PRN (07:58)
[2020-06-09 08:00] VITALS: BP 153/73
[2020-06-09] MEDS: ASPIRIN 81 MG TAB.CHEW PO SCH (08:02)
[2020-06-09] MEDS: APIXABAN 5 MG TABLET PO SCH ×2 (08:03→16:09)
[2020-06-09] MEDS: DOCUSATE SODIUM 100 MG CAPSULE PO SCH (08:03)
[2020-06-09] MEDS: ISOSORBIDE DINITRATE (20MG) 20 MG TABLET PO SCH ×2 (08:04→16:09)
[2020-06-09] MEDS: FUROSEMIDE 100 MG/10 ML VIAL IV SCH ×2 (10:58→13:54)
--- NOTE | 2020-06-09 14:07 | NUR ---
Rn note: Patient refused stat abg draw ordered by Dr. Aguero. informed and is aware.
[2020-06-09] MEDS ORDERED: POTA20TA83 PO (15:23)
[2020-06-09] MEDS ORDERED: FURO-144 PO (15:23)
--- NOTE | 2020-06-09 15:58 | NUR ---
rn note: report given to ELSI Callaway from [facility].
[2020-06-09 16:09] VITALS: BP 145/82
--- NOTE | 2020-06-09 17:20 | NUR ---
marketing intern note: Patient was taken by 2 kindergartners helper for transport to receiving facility. Patient was discharged in stable condition. Discharge forms, belongings form were signed. Discharge instructions were understood and family informed of transfer.
== END 2020-06-09 17:10 | DRG 280 ==
LOC: ER 11:56 → TELE1 16:16 → MEDSG1 06-07 06:03
PROVIDERS: ADMIT Nurse Practitioner Acute Care; ATTEND Nurse Practitioner Acute Care
DX: I48.91 Unspecified atrial fibrillation (principal); I21.4 Non-ST elevation (NSTEMI) myocardial infarction; I50.33 Acute on chronic diastolic (congestive) heart failure; J96.12 Chronic respiratory failure with hypercapnia; E66.2 Morbid (severe) obesity with alveolar hypoventilation; D68.69 Other thrombophilia; E87.4 Mixed disorder of acid-base balance; Z68.41 Body mass index [BMI] 40.0-44.9, adult; I11.0 Hypertensive heart disease with heart failure; K21.9 Gastro-esophageal reflux disease without esophagitis; M19.90 Unspecified osteoarthritis, unspecified site; I25.10 Atherosclerotic heart disease of native coronary artery without angina pectoris; J45.909 Unspecified asthma, uncomplicated; I27.20 Pulmonary hypertension, unspecified
CPT/HCPCS: 36415; 36600; 71045-TC; 80048-TC; 80053-TC; 80061-TC; 80076-TC; 81000-TC; 82803-TC; 83540-TC; 83735-TC; 84100-TC; 84443-TC; 84484-TC; 85025-TC; 87081-TC; 93971-TC; G0378; J1940; J7030; U0003-CS